=== PATIENT | male | born 1945 | race Caucasian/White ===

== ENCOUNTER 2017-03-18 08:27 | Observation (INO) ==
[2017-03-18] MEDS ORDERED: MORPHINE 2 MG/1 ML SYRINGE IV STA (09:34)
[2017-03-18] MEDS ORDERED: ALUM/MAG/SIMETH/LIDO VISC 1:1 30 ML BOTTLE PO STA (09:34)
[2017-03-18] MEDS ORDERED: ONDANSETRON 4 MG/2 ML VIAL IV STA (09:34)
[2017-03-18] MEDS ORDERED: METOPROLOL TARTRATE 25 MG TABLET PO STA (09:34)
[2017-03-18] MEDS ORDERED: KETOROLAC 30 MG/1 ML VIAL IV STA (09:34)
[2017-03-18] MEDS ORDERED: NITROGLYCERIN 2% OINT 1 INCH/GM PACK TOP STA (09:34)
[2017-03-18 09:56] LABS: Albumin 4.1 G/DL (3.4-5.0); Bilirubin,Total 0.5 MG/DL (0.2-1.0); Calcium 9.4 MG/DL (8.5-10.1); Magnesium 1.8 MG/DL (1.8-2.4); Osmolality,Calculated 277.5 MOS/KG (273-304); Potassium 3.5 MMOL/L (3.5-5.1); Total Protein 7.6 G/DL (6.4-8.3)
[2017-03-18] MEDS ORDERED: ONDANSETRON 4 MG/2 ML VIAL ONE (09:58)
[2017-03-18] MEDS ORDERED: NITROGLYCERIN 2% OINT 1 INCH/GM PACK TOP ONE (09:58)
[2017-03-18] MEDS ORDERED: MORPHINE 2 MG/1 ML SYRINGE ONE (09:58)
[2017-03-18] MEDS ORDERED: KETOROLAC 30 MG/1 ML VIAL ONE (09:58)
[2017-03-18] MEDS ORDERED: ALUM/MAG/SIMETH/LIDO VISC 1:1 30 ML BOTTLE PO ONE (09:58)
[2017-03-18] MEDS ORDERED: METOPROLOL TARTRATE 25 MG TABLET ONE (09:58)
[2017-03-18 10:09] LABS: Basophils # 0.1 10*3/uL (0.0-0.2); Basophils % 0.7 % (0.0-0.8); Eosinophils % 0.3 % (0.00-10.9); Hematocrit 49.2 VOL% (42.0-52.0); Hemoglobin 17.2 GM/DL (14.0-18.0); Immature Granulocytes % 1.2 %; Immature Granulocytes Absolute 0.09 #; Lymphocytes # 2.2 10*3/uL (1.4-4.0); Lymphocytes % 30.5 % (21.2-54.2); Mean Corpuscular Hemoglobin 31 PG (27-34); Mean Corpuscular Volume 89.1 FL (87-102); Mean Platelet Volume 11.2 FL (9.6-12.0); Monocytes % 13.7 % (1.7-12.7); Neutrophils # 3.9 10*3/uL (1.4-7.4); Neutrophils % 53.6 % (38.7-73.9); Platelet Count 151 T/CUMM (130-400); Red Blood Count 5.52 MC/CUMM (3.8-5.5); Red Cell Distribution Width 13.2 % (9.3-17.3); White Blood Count 7.3 T/CUMM (4-12)
[2017-03-18 10:13] LABS: INR 1.1; PT Patient Result 11.1 SECS
[2017-03-18] MEDS ORDERED: ACETAMINOPHEN 325 MG TABLET PO PRN (12:04)
[2017-03-18] MEDS ORDERED: MAGNESIUM SULF RIDER 2 GM in PREMIX 1 EACH IV PRN ×2 (12:04→12:47)
[2017-03-18] MEDS ORDERED: ZALEPLON 5 MG CAPSULE PO PRN ×2 (12:04→12:47)
[2017-03-18] MEDS ORDERED: BISACODYL 5 MG TABLET PO PRN (12:04)
[2017-03-18] MEDS ORDERED: ONDANSETRON 4 MG/2 ML VIAL IV PRN ×2 (12:04→12:47)
[2017-03-18] MEDS ORDERED: MAGNESIUM SULF RIDER 4 GM in PREMIX 1 EACH IV PRN ×2 (12:04→12:47)
[2017-03-18] MEDS ORDERED: POTASSIUM CHLORIDE 20 MEQ TABLET PO PRN ×2 (12:04→12:47)
[2017-03-18] MEDS ORDERED: MAGNESIUM HYDROXIDE SUSP 30 ML UDCUP PO PRN (12:04)
[2017-03-18] MEDS ORDERED: ENOXAPARIN 80 MG/0.8 ML SYRINGE SUBCUT STA (12:09)
[2017-03-18] MEDS ORDERED: ALBUTEROL/IPRATROPIUM 3 ML NEB RESP TX PRN (12:47)
[2017-03-18] MEDS ORDERED: SODIUM CHLORIDE 0.9% 1,000 ML IV SCH (12:47)
[2017-03-18] MEDS ORDERED: tiZANidine 4 MG TABLET PO PRN (12:47)
[2017-03-18] MEDS ORDERED: ALBUTEROL 2.5 MG/3 ML NEB RESP TX PRN (12:47)
[2017-03-18] MEDS ORDERED: NITROGLYCERIN SL 0.4 MG TABLET SL PRN (12:47)
[2017-03-18] MEDS ORDERED: MORPHINE 2 MG/1 ML SYRINGE IV PRN (12:47)
[2017-03-18] MEDS ORDERED: NITROGLYCERIN 2% OINT 1 INCH/GM PACK TOP SCH ×2 (16:00→18:00)
[2017-03-18 17:36] VITALS: BP 131/66
[2017-03-18] MEDS ORDERED: CARVEDILOL 3.125 MG TABLET PO SCH (21:00)
[2017-03-18] MEDS ORDERED: SIMVASTATIN 40 MG TABLET PO SCH (21:00)
[2017-03-18] MEDS ORDERED: ENOXAPARIN 80 MG/0.8 ML SYRINGE SUBCUT SCH (21:00)
[2017-03-18] MEDS ORDERED: PANTOPRAZOLE 40 MG TABLET PO SCH (21:00)
[2017-03-18] MEDS ORDERED: GABAPENTIN 100 MG CAPSULE PO SCH (21:00)
[2017-03-19] MEDS ORDERED: PANTOPRAZOLE 40 MG TABLET PO SCH (09:00)
[2017-03-19] MEDS ORDERED: FOSINOPRIL 10 MG TABLET PO SCH (09:00)
[2017-03-19] MEDS ORDERED: predniSONE 5 MG TABLET PO SCH (09:00)
[2017-03-19] MEDS ORDERED: FOLIC ACID 1 MG TABLET PO SCH (09:00)
[2017-03-19] MEDS ORDERED: ASPIRIN EC 81 MG TABLET PO SCH (09:00)
[2017-03-19] MEDS ORDERED: CLOPIDOGREL 75 MG TABLET PO SCH ×2 (09:00→12:06)
[2017-03-19] MEDS ORDERED: ASPIRIN CHEW 81 MG TABLET PO SCH (09:00)
[2017-03-24] MEDS ORDERED: METHOTREXATE 2.5 MG TABLET PO SCH (09:00)
== END 2017-03-18 18:38 | disposition home or self-care (01) ==
LOC: N.ED 08:27 → N.EDINP 10:56 → INTOOBSV 10:56 → N.EDINP 12:04 → N.TELES 13:09
PROVIDERS: ADMIT Internal Medicine Cardiovascular Disease; ATTEND Internal Medicine Cardiovascular Disease

== ENCOUNTER 2022-03-31 12:02 | Inpatient (IN) ==
[~2022-03-31 12:02] MED LIST: ALBUTEROL 2.5 MG/3 ML NEB RESP TX STA; ALBUTEROL/IPRATROPIUM 3 ML NEB RESP TX STA; ASPIRIN 325 MG TABLET PO STA; methylPREDNISolone SOD SUC 125 MG/2 ML VIAL IV STA
[2022-03-31 12:36] LABS: Basophils % 0.1 % (0.0-0.8); Eosinophils % 0.2 % (0.00-10.9); Hematocrit 39.3 VOL% (42.0-52.0); Hemoglobin 13.4 GM/DL (14.0-18.0); Immature Granulocytes % 4.1 %; Immature Granulocytes Absolute 0.44 #; Lymphocytes # 0.2 10*3/uL (1.4-4.0); Lymphocytes % 2.2 % (21.2-54.2); Mean Corpuscular HGB Conc 34.1 GM/DL (32-36); Mean Corpuscular Volume 88.5 FL (87-102); Mean Platelet Volume 11.2 FL (9.6-12.0); Monocytes # 1.2 10*3/uL (0.11-0.8); Monocytes % 10.6 % (1.7-12.7); Neutrophils % 82.8 % (38.7-73.9); Platelet Count 149 T/CUMM (130-400); Red Blood Count 4.44 MC/CUMM (3.8-5.5); Red Cell Distribution Width 15.4 % (9.3-17.3); White Blood Count 10.8 T/CUMM (4-12)
[2022-03-31 12:38] LABS: Arterial Base Excess iSTAT 1 MMOL/L (-2.5-2.5); Arterial Bicarbonate iSTAT 23.8 MMOL/L (20-26); Arterial O2 Saturation iSTAT 95 % (95-100); Arterial PCO2 iSTAT 32 MM HG (35-48); Arterial PO2 iSTAT 70 MM HG (80-95); Arterial Total CO2 iSTAT 25 MMO/L (23-27); Arterial pH iSTAT 7.476 (7.35-7.45)
[2022-03-31 12:44] LABS: INR 1.1; PT Patient Result 12.4 SECS (10.1-12.1)
[2022-03-31 12:57] LABS: Albumin 3.1 G/DL (3.4-5.0); Bilirubin,Total 0.6 MG/DL (0.20-1.00); Calcium 7.1 MG/DL (8.5-10.1); Potassium 3.3 MMOL/L (3.5-5.1); Total Protein 6.4 G/DL (6.4-8.2)
[2022-03-31 13:00] LABS: Band Neutrophils 17 % (0-10); Lymphocytes 2 % (20-55); Platelet Estimate Decreased; Total Cells Counted 100
[2022-03-31] MEDS ORDERED: AZITHROMYCIN INJ 500 MG in SODIUM CHLORIDE 0.9% 250 ML IV STA (13:35)
[2022-03-31] MEDS ORDERED: cefTRIAXone 1,000 MG in SODIUM CHLORIDE 0.9% 100 ML IV STA (13:35)
[2022-03-31] MEDS ORDERED: ONDANSETRON 4 MG/2 ML VIAL IV PRN (15:04)
[2022-03-31] MEDS ORDERED: POTASSIUM CHLORIDE 20 MEQ TABLET PO STA (15:24)
[2022-03-31] MEDS: CETIRIZINE 10 MG TABLET PO SCH (15:40)
[2022-03-31] MEDS: ZINC SULFATE 220 MG CAPSULE PO SCH (15:40)
[2022-03-31] MEDS: CHOLECALCIFEROL 1,000 UNIT TABLET PO SCH (15:40)
[2022-03-31] MEDS: ASCORBIC ACID 500 MG TABLET PO SCH (15:40)
[2022-03-31] MEDS: PANTOPRAZOLE 40 MG TABLET PO SCH (15:40)
[2022-03-31] MEDS: DEXAMETHASONE 4 MG/1 ML VIAL IV SCH (15:43)
[2022-03-31] MEDS ORDERED: POTASSIUM BICARB EFFERVESCENT 20 MEQ TAB.EFF PO STA (15:49)
[2022-03-31] MEDS ORDERED: POTASSIUM BICARB EFFERVESCENT 20 MEQ TAB.EFF ONE (15:50)
[2022-03-31] MEDS ORDERED: REMDESIVIR 200 MG in SODIUM CHLORIDE 0.9% 210 ML IV ONE (16:00)
[2022-03-31] MEDS ORDERED: NON-FORMULARY MEDICATION (Albuterol Sulfate [Proair Hfa] 90 MCG/PUFF HFA aerosol inhaler) INH PRN (17:04)
[2022-03-31] MEDS: SODIUM CHLORIDE 0.9% 1,000 ML IV SCH (18:05)
[2022-03-31] MEDS ORDERED: NITROGLYCERIN SL 0.4 MG TABLET SL PRN (18:33)
[2022-03-31] MEDS: ALBUTEROL INHALER 18 GM INH SCH (19:14)
[2022-03-31] MEDS: ARFORMOTEROL 15 MCG/2 ML NEB RESP TX SCH (20:20)
[2022-03-31] MEDS: ENOXAPARIN 40 MG/0.4 ML SYRINGE SUBCUT SCH (22:46)
[2022-03-31] MEDS: SIMVASTATIN 40 MG TABLET PO SCH (22:47)
[2022-03-31] MEDS ORDERED: SODIUM CHLORIDE 0.9% 500 ML IV STA (22:54)
[2022-04-01] MEDS: carvediloL 3.125 MG TABLET PO SCH ×3 (00:07→22:40)
[2022-04-01] MEDS ORDERED: SODIUM CHLORIDE 0.9% 1,000 ML IV ONE (00:18)
[2022-04-01] MEDS ORDERED: NOREPINEPHRINE DRIP 8 MG/250 ML PREMIX IV PRN (01:54)
[2022-04-01] MEDS ORDERED: NOREPINEPHRINE 4 MG/4 ML VIAL IV ONE (01:56)
[2022-04-01] MEDS: ALBUTEROL INHALER 18 GM INH PRN (03:27)
[2022-04-01 04:16] LABS: Basophils % 0.2 % (0.0-0.8); Eosinophils % 0.2 % (0.00-10.9); Hematocrit 38.8 VOL% (42.0-52.0); Hemoglobin 12.6 GM/DL (14.0-18.0); Immature Granulocytes % 4.5 %; Immature Granulocytes Absolute 0.79 #; Lymphocytes # 0.4 10*3/uL (1.4-4.0); Lymphocytes % 2.3 % (21.2-54.2); Mean Corpuscular HGB Conc 32.5 GM/DL (32-36); Mean Corpuscular Volume 90.9 FL (87-102); Monocytes % 5.5 % (1.7-12.7); Neutrophils % 87.3 % (38.7-73.9); Platelet Count 186 T/CUMM (130-400); Red Blood Count 4.27 MC/CUMM (3.8-5.5); Red Cell Distribution Width 15.9 % (9.3-17.3); White Blood Count 17.7 T/CUMM (4-12)
[2022-04-01 04:36] LABS: Band Neutrophils 2 % (0-10); Lymphocytes 3 % (20-55); Platelet Estimate Adequate; Total Cells Counted 100
[2022-04-01 04:39] LABS: Ferritin 715.9 ng/mL (26-388); Folate 7.16 NG/ML (5.38-24.0); Vitamin B12 1104 PG/ML (211-911)
[2022-04-01 04:43] LABS: Albumin 2.6 G/DL (3.4-5.0); Bilirubin,Total 0.4 MG/DL (0.20-1.00); Risk Ratio 3.31; Thyroid Stimulating Hormone 0.33 uIU/ml (0.358-3.74); Total Protein 6.1 G/DL (6.4-8.2); VLDL Cholesterol 16.6 MG/DL
[2022-04-01] MEDS: SODIUM CHLORIDE 0.9% 1,000 ML IV SCH ×2 (05:02→08:02)
[2022-04-01 05:24] LABS: Sedimentation Rate-Westergren 75 MM/HR (0-20)
[2022-04-01] MEDS: POTASSIUM CHLORIDE RIDER 10 MEQ/100 ML PREMIX IV PRN ×5 (05:54→13:58)
[2022-04-01] MEDS: ALBUTEROL INHALER 18 GM INH SCH ×4 (08:00→20:27)
[2022-04-01] MEDS: ASPIRIN EC 81 MG TABLET PO SCH (08:07)
[2022-04-01] MEDS: ASCORBIC ACID 500 MG TABLET PO SCH (08:07)
[2022-04-01] MEDS: CHOLECALCIFEROL 1,000 UNIT TABLET PO SCH (08:07)
[2022-04-01] MEDS: ZINC SULFATE 220 MG CAPSULE PO SCH (08:07)
[2022-04-01] MEDS: CETIRIZINE 10 MG TABLET PO SCH (08:08)
[2022-04-01] MEDS: PANTOPRAZOLE 40 MG TABLET PO SCH (08:08)
[2022-04-01] MEDS: DEXAMETHASONE 4 MG/1 ML VIAL IV SCH (08:09)
[2022-04-01] MEDS: lisinopriL 10 MG TABLET PO SCH (08:09)
[2022-04-01] MEDS: CLOPIDOGREL 75 MG TABLET PO SCH (08:32)
[2022-04-01] MEDS: AZITHROMYCIN INJ 500 MG in SODIUM CHLORIDE 0.9% 250 ML IV SCH (08:58)
[2022-04-01] MEDS ORDERED: cefTRIAXone 1,000 MG in SODIUM CHLORIDE 0.9% 100 ML IV SCH (09:00)
[2022-04-01] MEDS: OLANZapine 5 MG TABLET PO PRN (09:07)
[2022-04-01] MEDS: OMEPRAZOLE ODT 20 MG TABLET PO SCH (09:24)
[2022-04-01] MEDS: REMDESIVIR 100 MG in SODIUM CHLORIDE 0.9% 100 ML IV SCH (09:24)
[2022-04-01] MEDS: ARFORMOTEROL 15 MCG/2 ML NEB RESP TX SCH ×2 (09:32→20:27)
[2022-04-01] MEDS ORDERED: POTASSIUM BICARB EFFERVESCENT 20 MEQ TAB.EFF PER TUBE PRN (18:00)
[2022-04-01] MEDS: POTASSIUM BICARB EFFERVESCENT 20 MEQ TAB.EFF PO PRN (18:16)
[2022-04-01] MEDS: SIMVASTATIN 40 MG TABLET PO SCH (20:27)
[2022-04-01] MEDS: ENOXAPARIN 40 MG/0.4 ML SYRINGE SUBCUT SCH (20:27)
[2022-04-02] MEDS: SODIUM CHLORIDE 0.9% 1,000 ML IV SCH (00:05)
[2022-04-02] MEDS: ALBUTEROL INHALER 18 GM INH SCH ×4 (01:32→20:39)
[2022-04-02 04:44] LABS: Basophils % 0.1 % (0.0-0.8); Eosinophils % 0.1 % (0.00-10.9); Hematocrit 33.6 VOL% (42.0-52.0); Hemoglobin 11.1 GM/DL (14.0-18.0); Immature Granulocytes % 4.7 %; Immature Granulocytes Absolute 0.67 #; Lymphocytes # 0.5 10*3/uL (1.4-4.0); Lymphocytes % 3.2 % (21.2-54.2); Mean Corpuscular Volume 90.1 FL (87-102); Mean Platelet Volume 11.7 FL (9.6-12.0); Monocytes # 1.3 10*3/uL (0.11-0.8); Neutrophils % 82.9 % (38.7-73.9); Platelet Count 145 T/CUMM (130-400); Red Blood Count 3.73 MC/CUMM (3.8-5.5); White Blood Count 14.4 T/CUMM (4-12)
[2022-04-02 05:02] LABS: Lymphocytes 2 % (20-55); Total Cells Counted 100
[2022-04-02 05:03] LABS: Platelet Estimate Adequate
[2022-04-02 05:07] LABS: Alanine Aminotransferase 14 U/L (16-61); Albumin 2.2 G/DL (3.4-5.0); Alkaline Phosphatase 45 U/L (45-117); Aspartate Amino Transferase 20 U/L (0-37); Bilirubin,Total < 0.39 MG/DL (0.20-1.00); Blood Urea Nitrogen 14 MG/DL (7-18); Calcium 6.1 MG/DL (8.5-10.1); Carbon Dioxide 27 MMOL/L (21-32); Chloride 114 MMOL/L (98-107); Glucose 104 MG/DL (74-106); Osmolality,Calculated 288.7 MOS/KG (273-304); Potassium 3.4 MMOL/L (3.5-5.1); Sodium 145 MMOL/L (136-145); Total Protein 4.9 G/DL (6.4-8.2)
[2022-04-02] MEDS: ARFORMOTEROL 15 MCG/2 ML NEB RESP TX SCH ×2 (07:26→19:26)
[2022-04-02] MEDS ORDERED: CALCIUM GLUCONATE RIDER 1,000 MG/50 ML PREMIX IV ONE (08:11)
[2022-04-02] MEDS: carvediloL 3.125 MG TABLET PO SCH ×2 (08:34→20:39)
[2022-04-02] MEDS: ASPIRIN EC 81 MG TABLET PO SCH (08:34)
[2022-04-02] MEDS: DEXAMETHASONE 4 MG/1 ML VIAL IV SCH (08:34)
[2022-04-02] MEDS: OMEPRAZOLE ODT 20 MG TABLET PO SCH (08:35)
[2022-04-02] MEDS: CHOLECALCIFEROL 1,000 UNIT TABLET PO SCH (08:35)
[2022-04-02] MEDS: lisinopriL 10 MG TABLET PO SCH (08:35)
[2022-04-02] MEDS: ASCORBIC ACID 500 MG TABLET PO SCH (08:35)
[2022-04-02] MEDS: REMDESIVIR 100 MG in SODIUM CHLORIDE 0.9% 100 ML IV SCH (08:35)
[2022-04-02] MEDS: CLOPIDOGREL 75 MG TABLET PO SCH (08:35)
[2022-04-02] MEDS: CETIRIZINE 10 MG TABLET PO SCH (08:36)
[2022-04-02] MEDS: ZINC SULFATE 220 MG CAPSULE PO SCH (08:36)
[2022-04-02 08:46] LABS: Hemoglobin A1 (Alkaline) 97.8 % (96.5-98.5); Hemoglobin A2 (Alkaline) 2.2 % (1.5-3.5)
[2022-04-02] MEDS: AZITHROMYCIN INJ 500 MG in SODIUM CHLORIDE 0.9% 250 ML IV SCH (10:34)
[2022-04-02] MEDS ORDERED: LORazepam 2 MG/1 ML VIAL ONE (12:07)
[2022-04-02] MEDS: LORazepam 2 MG/1 ML VIAL IV PRN ×2 (12:13→20:34)
[2022-04-02] MEDS: cefTRIAXone 1,000 MG in SODIUM CHLORIDE 0.9% 100 ML IV SCH (12:35)
[2022-04-02] MEDS: GABAPENTIN 300 MG CAPSULE PO SCH (20:39)
[2022-04-02] MEDS: ENOXAPARIN 40 MG/0.4 ML SYRINGE SUBCUT SCH (20:39)
[2022-04-02] MEDS: SIMVASTATIN 40 MG TABLET PO SCH (20:39)
[2022-04-02] MEDS: OLANZapine 5 MG TABLET PO PRN (21:37)
[2022-04-02] MEDS: ALBUTEROL INHALER 18 GM INH PRN (21:38)
[2022-04-03] MEDS: ALBUTEROL INHALER 18 GM INH SCH ×4 (01:40→18:31)
[2022-04-03 05:29] LABS: Basophils % 0.3 % (0.0-0.8); Hematocrit 35.3 VOL% (42.0-52.0); Hemoglobin 11.6 GM/DL (14.0-18.0); Lymphocytes # 0.6 10*3/uL (1.4-4.0); Lymphocytes % 5.1 % (21.2-54.2); Mean Corpuscular HGB Conc 32.9 GM/DL (32-36); Mean Corpuscular Volume 90.5 FL (87-102); Mean Platelet Volume 12.3 FL (9.6-12.0); Monocytes # 1.1 10*3/uL (0.11-0.8); Neutrophils % 79.6 % (38.7-73.9); Platelet Count 152 T/CUMM (130-400); White Blood Count 11.7 T/CUMM (4-12)
[2022-04-03 05:53] LABS: Alanine Aminotransferase 18 U/L (16-61); Albumin 2.4 G/DL (3.4-5.0); Alkaline Phosphatase 56 U/L (45-117); Aspartate Amino Transferase 24 U/L (0-37); Band Neutrophils 2 % (0-10); Bilirubin,Total < 0.39 MG/DL (0.20-1.00); Blood Urea Nitrogen 11 MG/DL (7-18); Calcium 6.7 MG/DL (8.5-10.1); Carbon Dioxide 26 MMOL/L (21-32); Chloride 111 MMOL/L (98-107); Glucose 84 MG/DL (74-106); Lymphocytes 10 % (20-55); Osmolality,Calculated 280.1 MOS/KG (273-304); Platelet Estimate Adequate; Potassium 3.1 MMOL/L (3.5-5.1); Sodium 142 MMOL/L (136-145); Total Cells Counted 100; Total Protein 5.6 G/DL (6.4-8.2)
[2022-04-03] MEDS: POTASSIUM BICARB EFFERVESCENT 20 MEQ TAB.EFF PO PRN ×3 (06:27→09:38)
[2022-04-03] MEDS: ARFORMOTEROL 15 MCG/2 ML NEB RESP TX SCH ×2 (07:32→19:30)
[2022-04-03] MEDS: CLOPIDOGREL 75 MG TABLET PO SCH (08:29)
[2022-04-03] MEDS: ASPIRIN EC 81 MG TABLET PO SCH (08:29)
[2022-04-03] MEDS: GABAPENTIN 300 MG CAPSULE PO SCH ×2 (08:29→21:14)
[2022-04-03] MEDS: carvediloL 3.125 MG TABLET PO SCH ×2 (08:29→21:14)
[2022-04-03] MEDS: DEXAMETHASONE 4 MG/1 ML VIAL IV SCH (08:29)
[2022-04-03] MEDS: ASCORBIC ACID 500 MG TABLET PO SCH (08:30)
[2022-04-03] MEDS: lisinopriL 10 MG TABLET PO SCH (08:30)
[2022-04-03] MEDS: OMEPRAZOLE ODT 20 MG TABLET PO SCH (08:30)
[2022-04-03] MEDS: AZITHROMYCIN INJ 500 MG in SODIUM CHLORIDE 0.9% 250 ML IV SCH (08:30)
[2022-04-03] MEDS: CHOLECALCIFEROL 1,000 UNIT TABLET PO SCH ×2 (08:30)
[2022-04-03] MEDS: ZINC SULFATE 220 MG CAPSULE PO SCH (08:30)
[2022-04-03] MEDS: CETIRIZINE 10 MG TABLET PO SCH (08:30)
[2022-04-03] MEDS ORDERED: POTASSIUM CHLORIDE 20 MEQ TABLET PO ONE (09:32)
[2022-04-03] MEDS: REMDESIVIR 100 MG in SODIUM CHLORIDE 0.9% 100 ML IV SCH (10:00)
[2022-04-03] MEDS: OLANZapine 5 MG TABLET PO PRN (11:53)
[2022-04-03] MEDS: cefTRIAXone 1,000 MG in SODIUM CHLORIDE 0.9% 100 ML IV SCH (15:28)
[2022-04-03] MEDS: ENOXAPARIN 40 MG/0.4 ML SYRINGE SUBCUT SCH (21:14)
[2022-04-03] MEDS: SIMVASTATIN 40 MG TABLET PO SCH (21:14)
[2022-04-04] MEDS: ALBUTEROL INHALER 18 GM INH SCH ×5 (02:20→19:31)
[2022-04-04 04:51] LABS: Basophils % 0.3 % (0.0-0.8); Eosinophils % 0.1 % (0.00-10.9); Hematocrit 39.6 VOL% (42.0-52.0); Hemoglobin 12.7 GM/DL (14.0-18.0); Immature Granulocytes % 7.2 %; Immature Granulocytes Absolute 0.67 #; Lymphocytes # 0.7 10*3/uL (1.4-4.0); Lymphocytes % 7.1 % (21.2-54.2); Mean Corpuscular HGB Conc 32.1 GM/DL (32-36); Mean Corpuscular Volume 90.4 FL (87-102); Mean Platelet Volume 11.9 FL (9.6-12.0); Monocytes # 0.9 10*3/uL (0.11-0.8); Monocytes % 9.6 % (1.7-12.7); Neutrophils % 75.7 % (38.7-73.9); Platelet Count 191 T/CUMM (130-400); Red Blood Count 4.38 MC/CUMM (3.8-5.5); Red Cell Distribution Width 16.1 % (9.3-17.3); White Blood Count 9.3 T/CUMM (4-12)
[2022-04-04 05:11] LABS: Albumin 2.5 G/DL (3.4-5.0); Bilirubin,Total 0.4 MG/DL (0.20-1.00); Osmolality,Calculated 285.8 MOS/KG (273-304); Potassium 3.8 MMOL/L (3.5-5.1); Total Protein 5.8 G/DL (6.4-8.2)
[2022-04-04 05:14] LABS: Lymphocytes 7 % (20-55); Platelet Estimate Adequate; Total Cells Counted 100
[2022-04-04] MEDS: ARFORMOTEROL 15 MCG/2 ML NEB RESP TX SCH ×2 (07:28→19:31)
[2022-04-04] MEDS: DEXAMETHASONE 4 MG/1 ML VIAL IV SCH (09:09)
[2022-04-04] MEDS: lisinopriL 10 MG TABLET PO SCH (09:10)
[2022-04-04] MEDS: ASPIRIN EC 81 MG TABLET PO SCH (09:10)
[2022-04-04] MEDS: carvediloL 3.125 MG TABLET PO SCH ×2 (09:10→21:28)
[2022-04-04] MEDS: ALPRAZolam 0.25 MG TABLET PO PRN (09:10)
[2022-04-04] MEDS: ASCORBIC ACID 500 MG TABLET PO SCH (09:11)
[2022-04-04] MEDS: ZINC SULFATE 220 MG CAPSULE PO SCH (09:11)
[2022-04-04] MEDS: CHOLECALCIFEROL 1,000 UNIT TABLET PO SCH ×2 (09:11→09:14)
[2022-04-04] MEDS: OMEPRAZOLE ODT 20 MG TABLET PO SCH (09:11)
[2022-04-04] MEDS: CETIRIZINE 10 MG TABLET PO SCH (09:11)
[2022-04-04] MEDS: CLOPIDOGREL 75 MG TABLET PO SCH (09:12)
[2022-04-04] MEDS: GABAPENTIN 300 MG CAPSULE PO SCH ×2 (09:12→21:28)
[2022-04-04] MEDS: AZITHROMYCIN INJ 500 MG in SODIUM CHLORIDE 0.9% 250 ML IV SCH (09:13)
[2022-04-04] MEDS: REMDESIVIR 100 MG in SODIUM CHLORIDE 0.9% 100 ML IV SCH (09:32)
[2022-04-04] MEDS ORDERED: POTASSIUM CHLORIDE 20 MEQ TABLET PO ONE (11:03)
[2022-04-04] MEDS: cefTRIAXone 1,000 MG in SODIUM CHLORIDE 0.9% 100 ML IV SCH (12:57)
[2022-04-04] MEDS: ENOXAPARIN 60 MG/0.6 ML SYRINGE SUBCUT SCH (15:17)
[2022-04-04] MEDS: LORazepam 2 MG/1 ML VIAL IV PRN (15:44)
[2022-04-04] MEDS ORDERED: ROSUVASTATIN 20 MG TABLET PO SCH (21:00)
[2022-04-05] MEDS: ENOXAPARIN 60 MG/0.6 ML SYRINGE SUBCUT SCH ×2 (02:29→15:54)
[2022-04-05] MEDS: ALBUTEROL INHALER 18 GM INH SCH ×3 (02:30→15:54)
[2022-04-05 06:29] LABS: Basophils % 0.3 % (0.0-0.8); Eosinophils % 0.3 % (0.00-10.9); Hematocrit 38.4 VOL% (42.0-52.0); Hemoglobin 12.5 GM/DL (14.0-18.0); Immature Granulocytes % 9.2 %; Immature Granulocytes Absolute 0.87 #; Lymphocytes # 0.8 10*3/uL (1.4-4.0); Lymphocytes % 8.5 % (21.2-54.2); Mean Corpuscular HGB Conc 32.6 GM/DL (32-36); Mean Corpuscular Volume 90.8 FL (87-102); Mean Platelet Volume 11.7 FL (9.6-12.0); Monocytes # 1.1 10*3/uL (0.11-0.8); Monocytes % 11.2 % (1.7-12.7); Neutrophils % 70.5 % (38.7-73.9); Platelet Count 203 T/CUMM (130-400); Red Blood Count 4.23 MC/CUMM (3.8-5.5); Red Cell Distribution Width 16.1 % (9.3-17.3); White Blood Count 9.5 T/CUMM (4-12)
[2022-04-05 06:40] LABS: Calcium 7.5 MG/DL (8.5-10.1); Potassium 3.1 MMOL/L (3.5-5.1)
[2022-04-05 06:51] LABS: Band Neutrophils 1 % (0-10); Lymphocytes 7 % (20-55); Platelet Estimate Adequate; Total Cells Counted 100
[2022-04-05 06:52] LABS: Hypochromia Slight
[2022-04-05] MEDS: ARFORMOTEROL 15 MCG/2 ML NEB RESP TX SCH (08:03)
[2022-04-05] MEDS ORDERED: POTASSIUM CHLORIDE 20 MEQ TABLET PO ONE (08:33)
[2022-04-05] MEDS ORDERED: MAGNESIUM SULF RIDER 4 GM/100 ML PREMIX IV ONE ×2 (08:34→16:00)
[2022-04-05] MEDS: OMEPRAZOLE ODT 20 MG TABLET PO SCH (10:32)
[2022-04-05] MEDS ORDERED: ALBUTEROL/IPRATROPIUM 3 ML NEB RESP TX ONE (10:37)
[2022-04-05] MEDS: GABAPENTIN 300 MG CAPSULE PO SCH (10:38)
[2022-04-05] MEDS: DEXAMETHASONE 4 MG/1 ML VIAL IV SCH (10:38)
[2022-04-05] MEDS: CETIRIZINE 10 MG TABLET PO SCH (10:39)
[2022-04-05] MEDS: carvediloL 3.125 MG TABLET PO SCH (10:39)
[2022-04-05] MEDS: lisinopriL 10 MG TABLET PO SCH (10:40)
[2022-04-05] MEDS: ASCORBIC ACID 500 MG TABLET PO SCH (10:40)
[2022-04-05] MEDS: CHOLECALCIFEROL 1,000 UNIT TABLET PO SCH ×2 (10:40→10:45)
[2022-04-05] MEDS: ZINC SULFATE 220 MG CAPSULE PO SCH (10:41)
[2022-04-05] MEDS: CLOPIDOGREL 75 MG TABLET PO SCH (10:44)
[2022-04-05] MEDS: ASPIRIN EC 81 MG TABLET PO SCH (10:44)
[2022-04-05] MEDS: AZITHROMYCIN INJ 500 MG in SODIUM CHLORIDE 0.9% 250 ML IV SCH (10:45)
[2022-04-05] MEDS: ALPRAZolam 0.25 MG TABLET PO PRN (11:27)
[2022-04-05] MEDS: LORazepam 2 MG/1 ML VIAL IV PRN (11:28)
[2022-04-05 12:18] VITALS: BP 113/81
[2022-04-05] MEDS: cefTRIAXone 1,000 MG in SODIUM CHLORIDE 0.9% 100 ML IV SCH (12:55)
[2022-04-06] MEDS ORDERED: DIAZEPAM 5 MG TABLET PO ONE (11:00)
[2022-04-06] MEDS ORDERED: diphenhydrAMINE CAP 25 MG CAPSULE PO ONE (11:00)
== END 2022-04-05 16:38 | disposition home or self-care (01) | DRG 871 ==
LOC: SUATTDRO → N.ED 12:02 → SUATTDRO 15:04 → N.EDINP 15:04 → N.CC 04-01 06:12 → N.TELEN 04-03 12:23
PROVIDERS: ADMIT Internal Medicine; ATTEND Internal Medicine